=== PATIENT | male | born 1955 | race Caucasian/White ===

== ENCOUNTER 2017-01-21 11:10 | Emergency (ER) | payer BC, OTHER ==
[~2017-01-21] VITALS: Ht 188 cm; Wt 136.1 kg
[~2017-01-21 11:10] MED LIST: ATOR20TA66 PO; BUPR100T8 PO; CHLO15MO3 MM; CIPR500T78 PO; CYCL10TA9 PO; ERGO400C PO; HYDR-3714 PO; LISI1TAB6 PO; METF-380 PO; MULT-974 PO; OMEP20CA12 PO; OXB5T PO; OXYC-12 PO; SODI100P15 DT; TMSL.4C PO
--- NOTE | 2017-01-21 12:32 | ED Abdominal Pain ---
General Chief Complaint: Abdominal/GI Problems Stated Complaint: ABD PAIN POSS HERNIA Nursing Triage Note: PT C/O UMBILICAL PAIN. HE STATES HE HAS HAD AN UMBILICAL HERNIA REPAIR SEVERAL YEARS AGO, BUT FEELS LIKE IT HAS FAILED AND HIS HERNIA IS BACK. Sepsis Screen: No Definite Risk Source of Information: Patient, Family Exam Limitations: No Limitations History of Present Illness Time Seen By Provider: 12:27 Initial Comments This 61-year-old white male presents with a complaint of progressive abdominal pain with associated obstipation. The patient had an umbilical hernia repair years ago and he is now again feeling a protrusion from his umbilical area concerning him that his umbilical hernia has returned and that he may be having obstructive symptoms. The patient has had associated early satiety. Although he is hungry he has not had significant intake. The patient denies fever or chills, he has had no bloody or tarry stools, he denies vomiting although he has been slightly nauseated, he's had no associated headache or stiff neck, chest pain, productive cough, or shortness of breath. The patient has arthritis of his knees. Patient has had a history of pancreatitis. He has had a cholecystectomy. There is a family history of cancer. Allergies and Home Medications Allergies Coded Allergies: Dmpncxz-Lod-Icn Reductase Inhibitor (Unverified Allergy, Unknown, 04/02/14) propoxyphene (Unverified Allergy, Unknown, 04/02/14) Home Medications Atorvastatin Calcium 20 Mg Tablet, 10 MG PO HS, (Reported) TAKES 1/2 (20MG) TABLET Bupropion Hcl 100 Mg Tablet.sa, 100 MG PO BID, (Reported) Chlorhexidine Gluconate 480 Ml Mouthwash, 1 TSP MM DAILY, (Reported) Cholecalciferol 400 Unit Capsule, 800 UNIT PO DAILY, (Reported) TAKES 2 (400IU) CAPSULES Cyclobenzaprine Hcl 10 Mg Tablet, 10 MG PO HS PRN for PAIN, (Reported) Hctz/Lisinopril 1 Each Tablet, 1 TAB PO DAILY, (Reported) Metformin Hcl 1,000 Mg Tablet, 1,000 MG PO HS, (Reported) Multivitamin 1 Each Tablet, 1 TAB PO DAILY, (Reported) Omeprazole 20 Mg Capsule.dr, 20 MG PO BID, (Reported) Oxybutynin Chloride 5 Mg Tablet, 5 MG PO TID PRN for DISCOMFORT, (Reported) Oxycodone Hcl/Acetaminophen 1 Each Tablet, 1 EACH PO Q4-6H PRN PRN for PAIN, # 120 Ref 0 Prescribed by: PABLO MARVIN on 04/08/14 1536 Sodium Fluoride 106 Ml Paste..ml., DT DAILY, (Reported) Tamsulosin Hcl 0.4 Mg Cap.er.24h, 0.4 MG PO AFTER EVENING MEAL, (Reported) Review of Systems Constitutional: No chills, No fever EENTM: No Blurred Vision Respiratory: Denies Cough Cardiovascular: Denies Chest Pain Gastrointestinal: Abdomen Distended, Abdominal Pain (dull diffuse abdominal pain.), Constipated, Diarrhea, Nausea, Poor Appetite, Poor Fluid Intake, Denies Rectal Bleeding, Denies Vomiting Genitourinary: Denies Burning, Denies Frequency Musculoskeletal: No back pain, joint pain Skin: No change in color, No rash Psychiatric/Neurological: No Symptoms Reported Endocrine: No Symptoms Reported Hematologic/Lymphatic: No Symptoms Reported Past Zkkqfei-Birbhv-Hnkmwh Hx Patient Social History Alcohol Use: Occasionally Uses Recreational Drug Use: No Smoking Status: Current Everyday Smoker Type Used: Cigarettes 2nd Hand Smoke Exposure: No Recent Foreign Travel: No Contact w/Someone Who Travel: No Recent Infectious Disease Expo: No Recent Hopitalizations: No Physical Abuse: No Sexual Abuse: No Immunizations Up To Date Tetanus Booster (TDap): Unknown Date of Pneumonia Vaccine: May 29, 2012 Seasonal Allergies Seasonal Allergies: No Surgeries History of Surgeries: Yes (ESWL, Knee arthroscopies x 3, add'l open knee surgery left side) Surgeries: Adenoidectomy, Orthopedic, Tonsillectomy Respiratory History of Respiratory Disorde: Yes (BIPAP @ home) Respiratory Disorders: Sleep Apnea Cardiovascular History of Cardiac Disorders: Yes Cardiac Disorders: High Cholesterol, Hypertension Neurological History of Neurological Disord: No Neurological Disorders: Neuropathy Reproductive System Hx Reproductive Disorders: No Genitourinary Genitourinary Disorders: Kidney Stones Gastrointestinal History of Gastrointestinal Di: Yes ([facility]) Gastrointestinal Disorders: Gastroesophageal Reflux, Pancreatitis Musculoskeletal History of Musculoskeletal Dis: Yes (Chronic back, hip, and knee pain) Musculoskeletal Disorders: Chronic Back Pain Endocrine History of Endocrine Disorders: Yes Endocrine Disorders: Diabetes, Non-Insulin dep HEENT Loss of Vision: Denies Hearing Impairment: Denies Cancer History of Cancer: No Psychosocial History of Psychiatric Problem: Yes Behavioral Health Disorders: PTSD Suicide Risk Score: 0 Integumentary History of Skin or Integumenta: No Blood Transfusions History of Blood Disorders: No Adverse Reaction to a Blood Tr: No Reviewed Nursing Assessment Reviewed/Agree w Nursing PMH: Yes Family Medical History Family Medial History: FH: breast cancer 19 MOTHER Physical Exam Vital Signs VS - Last 72 Hours, by Label 01/21/17 12:10 Temp 98.9 Pulse 65 Resp 18 B/P (MAP) 134/82 Pulse Ox 95 O2 Delivery Room Air Capillary Refill : Less Than 3 Seconds General Appearance: WD/WN, mild distress HEENT: normal ENT inspection, No scleral icterus (R), No scleral icterus (L) Neck: normal inspection Respiratory: lungs clear Cardiovascular: regular rate, rhythm, no murmur Gastrointestinal: abnormal bowel sounds (hypoactive bowel sounds), tenderness ( mild diffuse tenderness.), other (there is a small umbilical hernia that is appreciable measuring approximately 2 cm in diameter) Extremities: normal range of motion, non-tender, normal inspection Neurologic/Psychiatric: no motor/sensory deficits, alert, normal mood/affect, oriented x 3 Skin: normal color, warm/dry, No diaphoresis Progress/Results/Core Measures Results/Orders Lab Results Laboratory Tests Test 01/21/17 12:35 Range/Units White Blood Count 8.4 4.3-11.0 10^3/uL Red Blood Count 5.09 4.35-5.85 10^6/uL Hemoglobin 15.2 13.3-17.7 G/DL Hematocrit 44 40-54 % Mean Corpuscular Volume 86 80-99 FL Mean Corpuscular Hemoglobin 30 25-34 PG Mean Corpuscular Hemoglobin Concent 35 32-36 G/DL Red Cell Distribution Width 13.7 10.0-14.5 % Platelet Count 253 130-400 10^3/uL Mean Platelet Volume 9.6 7.4-10.4 FL Neutrophils (%) (Auto) 74 42-75 % Lymphocytes (%) (Auto) 16 12-44 % Monocytes (%) (Auto) 6 0-12 % Eosinophils (%) (Auto) 3 0-10 % Basophils (%) (Auto) 1 0-10 % Neutrophils # (Auto) 6.2 1.8-7.8 X 10^3 Lymphocytes # (Auto) 1.4 1.0-4.0 X 10^3 Monocytes # (Auto) 0.5 0.0-1.0 X 10^3 Eosinophils # (Auto) 0.2 0.0-0.3 10^3/uL Basophils # (Auto) 0.1 0.0-0.1 10^3/uL Sodium Level 140 135-145 MMOL/L Potassium Level 4.0 3.6-5.0 MMOL/L Chloride Level 105 98-107 MMOL/L Carbon Dioxide Level 24 21-32 MMOL/L Anion Gap 11 5-14 MMOL/L Blood Urea Nitrogen 15 7-18 MG/DL Creatinine 1.16 0.60-1.30 MG/DL Estimat Glomerular Filtration Rate > 60 BUN/Creatinine Ratio 13 Glucose Level 150 H 70-105 MG/DL Calcium Level 9.8 8.5-10.1 MG/DL Total Bilirubin 1.0 0.1-1.0 MG/DL Aspartate Amino Transf (AST/SGOT) 30 5-34 U/L Alanine Aminotransferase (ALT/SGPT) 36 0-55 U/L Alkaline Phosphatase 100 40-136 U/L Total Protein 7.0 6.4-8.2 GM/DL Albumin 4.0 3.2-4.5 GM/DL Lipase 63 8-78 U/L My Orders Orders - EBONI MCKOY MD Cbc With Automated Diff (01/21/17 12:26) Comprehensive Metabolic Panel (01/21/17 12:26) Lipase (01/21/17 12:26) Urinalysis (01/21/17 12:26) Ct Abdomen/Pelvis W (01/21/17 12:26) Ns Iv 1000 Ml (Sodium Chloride 0.9%) (01/21/17 12:30) Saline Lock/Iv-Start (01/21/17 12:31) Iohexol Injection (Omnipaque 350 Mg/Ml 1 (01/21/17 12:45) Ns (Ivpb) (Sodium Chloride 0.9% Ivpb Bag (01/21/17 12:45) Medications Given in ED Current Medications Medications Dose Ordered Sig/Brii Route Start Time Stop Time Status Last Admin Dose Admin Iohexol 100 ml ONCE ONCE IV 01/21/17 12:45 01/21/17 12:46 DC 01/21/17 13:22 100 ML Sodium Chloride 100 ml ONCE ONCE IV 01/21/17 12:45 01/21/17 12:46 DC 01/21/17 13:22 80 ML Vital Signs/I&O Vital Sign - Last 12Hours 01/21/17 12:10 Temp 98.9 Pulse 65 Resp 18 B/P (MAP) 134/82 Pulse Ox 95 O2 Delivery Room Air Blood Pressure Mean: 99 Progress Note : Time: 13:55 Progress Note The patient's CT of the abdomen and pelvis failed to demonstrate evidence of obstruction. The remainder of the patient's laboratory evaluation was similarly unremarkable. Departure Impression Impression: Primary Impression: Diarrhea Qualified Codes: R19.7 - Diarrhea, unspecified Disposition: HOME, SELF-CARE Condition: Unchanged Departure-Patient Inst. Decision time for Depature: 14:00 Referrals: ELI ARAIZA (PCP) Primary Care Physician Patient Instructions: Diarrhea in Adolescents and Adults Add. Discharge Instructions: Follow-up with your insurance healthcare consultant on Monday. Rest at home this . Return if any problems or questions. All discharge instructions reviewed with patient and/or family. Voiced understanding. EBONI MCKOY MD Jan 21, 2017 12:32
[2017-01-21] MEDS: NS IV 1000 ML 1,000 ML IV SCH (12:37)
[2017-01-21 12:48] LABS: BASOPHILS # (AUTO) 0.1 10^3/uL (0.0-0.1); BASOPHILS % (AUTO) 1 % (0-10); EOSINOPHILS # (AUTO) 0.2 10^3/uL (0.0-0.3); EOSINOPHILS % (AUTO) 3 % (0-10); LYMPHOCYTES # (AUTO) 1.4 X 10^3 (1.0-4.0); LYMPHOCYTES % (AUTO) 16 % (12-44); MEAN CORPUSCULAR HEMOGLOBIN 30 PG (25-34); MEAN CORPUSCULAR HGB CONC 35 G/DL (32-36); MEAN CORPUSCULAR VOLUME 86 FL (80-99); MEAN PLATELET VOLUME 9.6 FL (7.4-10.4); MONOCYTES # (AUTO) 0.5 X 10^3 (0.0-1.0); MONOCYTES % (AUTO) 6 % (0-12); NEUTROPHILS # (AUTO) 6.2 X 10^3 (1.8-7.8); NEUTROPHILS % (AUTO) 74 % (42-75); PLATELET COUNT 253 10^3/uL (130-400); RED BLOOD COUNT 5.09 10^6/uL (4.35-5.85); RED CELL DISTRIBUTION WIDTH 13.7 % (10.0-14.5); WHITE BLOOD COUNT 8.4 10^3/uL (4.3-11.0)
[2017-01-21 13:07] LABS: ALANINE AMINOTRANSFERASE 36 U/L (0-55); ANION GAP 11 MMOL/L (5-14); ASPARTATE AMINO TRANSFERASE 30 U/L (5-34); BLOOD UREA NITROGEN 15 MG/DL (7-18); BUN/CREATININE RATIO 13; CALCIUM 9.8 MG/DL (8.5-10.1); CARBON DIOXIDE 24 MMOL/L (21-32); CHLORIDE 105 MMOL/L (98-107); CREATININE SERUM 1.16 MG/DL (0.60-1.30); GFR ESTIMATED > 60; GLUCOSE 150 MG/DL (70-105); LIPASE 63 U/L (8-78); SODIUM 140 MMOL/L (135-145)
[2017-01-21] MEDS: NS 100 ML (IVPB) BAG IV ONE (13:22)
[2017-01-21] MEDS: IOHEXOL 350 MG/ML 100 ML (OMNIPAQUE 350) VIAL IV ONE (13:22)
--- NOTE | 2017-01-21 13:33 | Diagnostic Imaging Report ---
PROCEDURE: CT abdomen and pelvis with contrast. TECHNIQUE: Multiple contiguous axial images were obtained through the abdomen and pelvis after administration of intravenous contrast. INDICATION: Bowel problems for several weeks. Diarrhea. FINDINGS: There are fatty changes of liver. The bile ducts are not dilated. The spleen, pancreas and adrenals are normal. There is a 4 x 6 mm nonobstructing calculus in the left kidney. The right kidney is normal. The ureters and bladder are normal. There is diverticulosis of the colon. No acute bowel abnormality is seen. There is no free intraperitoneal air or fluid. IMPRESSION: There is a nonobstructing calculus in left kidney. No acute abnormality is seen. The changes of pancreatitis seen on the prior study from 04/02/14 have resolved. Dictated by: Dictated on workstation # [id number]
[2017-01-21 14:05] VITALS: BP 134/82
== END 2017-01-21 14:05 | disposition home or self-care (01) ==
LOC: EDUNIT# 11:10 → ER 11:12
DX: R19.7 Diarrhea, unspecified (principal); E78.00 Pure hypercholesterolemia, unspecified; I10 Essential (primary) hypertension; E11.40 Type 2 diabetes mellitus with diabetic neuropathy, unspecified; F43.10 Post-traumatic stress disorder, unspecified; K21.9 Gastro-esophageal reflux disease without esophagitis; G47.30 Sleep apnea, unspecified; F17.210 Nicotine dependence, cigarettes, uncomplicated; Z87.442 Personal history of urinary calculi; Z80.3 Family history of malignant neoplasm of breast; Z90.89 Acquired absence of other organs; Z87.19 Personal history of other diseases of the digestive system; Z98.890 Other specified postprocedural states; Z79.84 Long term (current) use of oral hypoglycemic drugs
CPT/HCPCS: 36415; 74177; 80053; 83690; 85025

== ENCOUNTER 2020-06-28 02:53 | Day surgery (SDC) | payer OTHER, MEDICARE ==
[~2020-06-28] VITALS: Ht 188 cm; Wt 131.9 kg
[~2020-06-28 02:53] MED LIST changes: +EPTIFIBATIDE BOLUS 10 ML IV ONE; +EPTIFIBATIDE BOLUS 20 ML IV ONE; +HEParin 1000 UNIT/ML (10ML VIAL) FOR BOLUS ONE; +MIDAZOLAM 5 MG/5 ML (VERSED) VIAL ONE; +NS (IVPB) 250 ML ONE; +fentaNYL INJECTION 100 MCG/2 ML AMP ONE; +niCARdipine 25 MG/10 ML (CARDENE) AMP IV ONE
[2020-06-28] MEDS ORDERED: NS IV 1000 ML 1,000 ML IV ONE (02:54)
--- NOTE | 2020-06-28 02:55 | Cardiac Procedure Note-CS/ASA ---
Pre-Procedure Note Pre-Op Procedure Note H&P Reviewed The H&P was reviewed, patient examined and no changes noted. Date H&P Reviewed: Jun 28, 2020 Time H&P Reviewed: 21:00 Conscious Sedation Pre-Proced Time 21:00 ASA Score 3 For ASA 3 and 4: Consider anesthesia and medical clearance. Also, for patients with a history of failed moderate sedation consider anesthesia. Airway Lungs Heart ASA score ASA 1: a normal healthy patient ASA 2: a patient with a mild systemic disease (mid diabetes, controlled hypertension, obesity x ASA 3: a patient with a severe systemic disease that limits activity (angina, COPD, prior Myocardial infarction) ASA 4: a patient with an incapacitating disease that is a constant threat to life (CHF, renal failure) ASA 5: a moribund patient not expected to survive 24 hrs. (ruptured aneurysm) ASA 6: a declared brain- patient whose organs are being harvested. For emergent operations, add the letter E after the classification Mallampati Classification Grade 3 Sedation Plan Analgesia, Amnesia, Plan communicated to team members, Discussed options with patient/fam, Discussed risks with patient/fam The patient is an appropriate candidate to undergo the planned procedure, sedation, and anesthesia. The patient immediately re-assessed prior to indication. LUBA VASQUES MD Jun 28, 2020 02:55
[2020-06-28] MEDS ORDERED: PATIENT MAY USE OWN MEDS, ALL PO SCH (03:00)
--- NOTE | 2020-06-28 03:00 | Cardiology History & Physical ---
HPI-Cardiology Cardiology Consultation Date of Consultation 06/28/20 Date of Admission Time Seen by Provider: 02:10 Indication: acute myocardial infarction HPI 65 years old gentleman with morbid obesity, started to have severe chest pain this afternoon went to [place] emergency room and noted to have EKG changes suggestive of acute ST patient myocardial infarction. I was contacted and patient was transferred to [place] on arrival he was still having some active chest pain. No shortness of breath. No palpitation. Was on nitroglycerin drip and received heparin and aspirin and Plavix in [place] emergency room. PMH-Cardiology Immunizations Up To Date Tetanus Booster (DTap): Unknown Date of Pneumonia Vaccine: May 29, 2012 Seasonal Allergies Seasonal Allergies: No Surgeries Yes (ESWL, Knee arthroscopies x 3, add'l open knee surgery left side) Respiratory Yes (BIPAP @ home) Cardiovascular Yes Hypertension Neurological No Neuropathy Reproductive System Hx Reproductive Disorders: No Genitourinary Kidney Stones Gastrointestinal Yes ([facility]) Gastroesophageal Reflux, Pancreatitis Musculoskeletal Yes (Chronic back, hip, and knee pain) Chronic Back Pain Endocrine Yes Diabetes, Non-Insulin dep HEENT Loss of Vision: Denies Hearing Impairment: Denies Cancer No Psychosocial Yes PTSD Integumentary No Blood Transfusions No Adverse Rxn to Transfusion: No Other PMHx Hypertension Hyperlipidemia Social History Patient Social History Marrital Status: Employed/Student: employed Family Hx Other Noncontributory Family History: FH: breast cancer 19 MOTHER ROS-Cardiology Review of Systems General: No Chills, No Night Sweats, No Fatigue, No Malaise, No Appetite HEENT: No Head Aches, No Visual Changes, No Eye Pain, No Ear Pain, No Dysphasia, No Sinus Congestion, No Post Nasal Drip, No Sore Throat Pulmonary: Dyspnea; No Cough, No Pleuritic Chest Pain Cardiovascular: Chest Pain; No: Palpitations, Orthopnea, Paroxysmal Noc. Dyspnea, Edema, Lt Headedness Gastrointestinal: No: Nausea, Vomiting, Abdominal Pain, Diarrhea, Constipation, Melena, Hematochezia Genitourinary: No Dysuria, No Frequency, No Incontinence, No Hematuria, No Retention Musculoskeletal: No: neck pain, shoulder pain, arm pain, back pain, hand pain, leg pain, foot pain Neurological: No: Weakness, Numbness, Incoordination, Change in speech, Confusion, Seizures Home Medications & Allergies Allergies: Coded Allergies: Uaoqfct-Zwm-Pka Reductase Inhibitor (Unverified Allergy, Unknown, 04/02/14) propoxyphene (Unverified Allergy, Unknown, 04/02/14) Exam-Cardiology Exam General Appearance: Alert, Oriented X3, Cooperative, No Acute Distress HEENT: Atraumatic, PERRLA Respiratory: Clear to Auscultation, Normal Air Movement Cardiovascular: Regular Rate, Normal S1, Normal S2, No Murmurs Abdominal: Normal Bowel Sounds, Soft, No Tenderness, No Hepatosplenomegaly, No Masses Extremities: No Clubbing, No Cyanosis, No Edema, Normal Pulses, No Tenderness/Swelling Skin: No Rashes, No Breakdown, No Significant Lesion Neuro: Normal Gait, Normal Speech, Strength at 5/5 X4 Ext, Normal Tone, Sensation Intact Psych/Mental Status: Mental Status NL, Mood NL Results Procedures Procedures Labs reviewed from [facility] A/P-Cardiology Admission Diagnosis Acute ST elevation myocardial infarction Coronary artery disease Congestive heart failure, acute left ventricular systolic dysfunction, ischemic cardiomyopathy Hypertension Admission Status: Inpatient Order (span 2 midnights) Reason for Inpatient Admission: Acute ST elevation myocardial infarction Assessment/Plan Acute ST elevation myocardial infarction in the inferoposterior wall, brought for emergency cardiac catheterization with door to balloon time of 15 minutes. Resolved, feeling better. 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 Started on aspirin and Plavix. Congestive heart failure, elevated left ventricular end-diastolic pressure, stunned myocardium with mild hypokinesia at the inferior wall, ejection fraction 45-50 percent started on beta blockers and will add SANDRO inhibitor if tolerating it Hypertension, was hypertensive on arrival to the emergency room. Started on Toprol. Currently blood pressure is better. Continue to monitor Possible hyperlipidemia started on Lipitor 80 mg daily empirically, I will evaluate lipid profile Morbid obesity. LUBA VASQUES MD Jun 28, 2020 02:59
--- NOTE | 2020-06-28 03:07 | Cardiac Cath Report ---
Cardiac Cath Report Physician (s)/Quarantine Officer (s) Physician LUBA VASQUES MD Pre-Procedure Diagnosis Pre-Procedure Diagnosis: STEMI Post-Procedure Note Procedure Start Date: Jun 28, 2020 Name of Procedure: Emergency left heart catheterization Emergency stenting of the right coronary artery Left ventriculogram Abdominal aortogram Findings/Procedure Note PROCEDURE NOTE: 65 years old gentleman admitted with acute ST elevation myocardial infarction, brought to the cardiac catheterization laboratory for emergency cardiac catheterization. After explaining the procedure to the patient, all pros and cons were explained, all questions were answered. The patient signed the consent and then he was placed on the cardiac catheterization laboratory. Groin was prepped SL fashion local anesthesia was used. Sheath placed in the right femoral artery. Claudia right and left catheter were used to access the coronary system. Pigtail was used to access the left ventricular cavity. Left ventriculogram was done Abdominal aortogram was done due to the difficulty of advancing the wire in the iliac artery and I evaluated the bifurcation Percutaneous intervention report Patient had total occlusion of the right coronary artery, receiving 4000 units of heparin in [place] emergency room, additional 3000 units heparin were given in the catheter lab, if our guide was advanced to the right coronary artery, patient has total occlusion, BMW wire advanced then predilated location with 2.0 then 2.5 balloons then deployment of Denita 2.5 x 28 mm in the mid right coronary artery, proximally overlapping with the first stent another Denita 2.75 x 28 mm, the proximal portion of the stent was expanded to 3.5 mm, the overlap area of both stents was 3.0 mm and distally 2.7 mm with excellent result, had initially slow flow responded to Cardene intracoronary. At the end of the procedure the sheath was removed. Closure device was deployed FINDINGS: Hemodynamics LV 113/21, end-diastolic pressure of 21 Aorta 118/64 mean of 84 ANATOMY: Left Main is free of obstructive disease Left Anterior Descending had moderate ectasia at the proximal and midportion with an area of 70 percent stenosis at the midportion which will be addressed at a later point Left Circumflex has moderate ectasia, dominant artery Right Coronory Artery is totally occluded, emergency establishment of flow with door to balloon time 16 minutes, predilated location with multiple balloons then deployment of 2 overlapping Denita stent 2.5 x 28 and 2.75 x 28 expanded to 3.5 mm proximally and 2.7 mm distally, slow flow initially responded to Cardene intracoronary with HUNTER-3 flow LV Gram was done showing prominent left ventricle with hypokinesia at the inferior wall, estimated ejection fraction 45-50 percent Aorta evaluation done with abdominal aortogram to evaluate the bifurcation due to difficulty advancing the wire through the right iliac artery showed small i nfrarenal aneurysm, ectasia in the iliac artery no dissection. Renal arteries were not visualized CONCLUSION: 1. Acute inferior/posterior wall myocardial infarction with total occlusion of the right coronary artery with door to balloon time 16 minutes 2. Total occlusion of the right coronary artery with deployment of 2 overlapping Denita stent 2.5 x 28 mm and 2.75 x 28 mm expanded proximally to 3.5 mm, at the overlap area 3.0 mm and distally 2.7 mm with excellent results 3. Moderate ectasia in the proximal and mid LAD with one area of 70 percent stenosis, I will observe at this point and will consider stress testing in the future 4. Mild ectasia in the circumflex artery, nonobstructive disease 5. Elevated left ventricular end-diastolic pressure, hypokinesia at the inferior wall, ejection fraction 45-50 percent 6. Small infrarenal abdominal aortic aneurysm with mild ectasia in the iliac artery no dissection, nonobstructive disease DISCUSSION AND RECOMMENDATION: Continue to maximize medical therapy at this point, planning for stress test or repeat cardiac catheterization and FFR to the LAD Anesthesia Type: Conscious Sedation Estimated blood loss (mL): 35 ml Contrast Amount: 140 ml Total Radiation Dose: 1912 mGy Post-Procedure Diagnosis Post-operative diagnosis: Acute ST elevation myocardial infarction Coronary artery disease Congestive heart failure, acute left ventricular systolic dysfunction ischemic cardiomyopathy Hypertension LUBA VASQUES MD Jun 28, 2020 03:07
--- NOTE | 2020-06-28 03:15 | NUR ---
IZABELA CARLOS admitted to room CU3-1, with an admitting diagnosis of STEMI post cath, on 06/28 from slab tripper, accompanied by staff.IZABELA CARLOS introduced to surroundings, call light, bed controls, phone, TV, temperature control, lights, meal times, smoking policy, visitor policy, side rail policy, bathrooms and showers. Patient Rights given to patient in the handbook. IZABELA CARLOS verbalizes understanding that [facility] is not responsible for the loss or damage to any personal effects or valuables that are kept in the patients possession during their hospitalization. The following Patient Care Plans were discussed with the patient: Discharge Planning, pain,diet, and exercise. IZABELA CARLOS verbalizes understanding of Interdisciplinary Patient Education. Patient and/or family were informed about the Rapid Response Team and its purpose.
[2020-06-28] MEDS: NS IV 1000 ML 1,000 ML IV SCH ×3 (03:25→23:57)
[2020-06-28] MEDS ORDERED: PRAS1TAB2 PO (04:48)
[2020-06-28] MEDS ORDERED: CHOL400T29 PO (04:48)
[2020-06-28] MEDS ORDERED: POTA10TA17 PO (04:48)
[2020-06-28] MEDS ORDERED: GLIP5TAB13 PO (04:48)
[2020-06-28] MEDS ORDERED: LISI40TA PO (04:48)
[2020-06-28] MEDS ORDERED: OMG1KC PO (04:48)
[2020-06-28] MEDS ORDERED: ALOG25TA2 PO (04:48)
[2020-06-28 05:27] LABS: HEMOGLOBIN 14.8 g/dL (13.3-17.7); MEAN PLATELET VOLUME 9.8 fL (9.0-12.2); WHITE BLOOD COUNT 11.7 10^3/uL (4.3-11.0)
[2020-06-28 05:39] LABS: ALBUMIN 3.8 GM/DL (3.2-4.5); CHLORIDE 105 MMOL/L (98-107); POTASSIUM 4.7 MMOL/L (3.6-5.0); SODIUM 137 MMOL/L (135-145)
[2020-06-28 05:41] LABS: TRIGLYCERIDES 117 MG/DL (<150); VLDL CHOLESTEROL 23 MG/DL (5-40)
[2020-06-28 05:42] LABS: GLUCOSE 156 MG/DL (70-105); TOTAL PROTEIN 6.7 GM/DL (6.4-8.2)
[2020-06-28 05:43] LABS: BILIRUBIN,TOTAL 0.8 MG/DL (0.1-1.0); CARBON DIOXIDE 22 MMOL/L (21-32)
[2020-06-28 05:45] LABS: ALKALINE PHOSPHATASE 82 U/L (40-136); CREATININE SERUM 1.05 MG/DL (0.60-1.30); GFR ESTIMATED > 60
[2020-06-28] MEDS ORDERED: oxyCODONE/APAP 5/325MG (PERCOCET 5) TABLET PO ONE (05:45)
[2020-06-28 05:46] LABS: CHOLESTEROL 166 MG/DL (< 200)
[2020-06-28 05:47] LABS: BUN/CREATININE RATIO 16; HDL CHOLESTEROL 30 MG/DL (40-60)
[2020-06-28 05:48] LABS: ALANINE AMINOTRANSFERASE 31 U/L (0-55)
[2020-06-28] MEDS: inSUlin ASPART (NovoLOG) 1 UNIT/0.01 ML (CHARGE PER UNIT) SC SCH ×4 (05:50→20:53)
[2020-06-28] MEDS: KCL 20 MEQ TAB (K-DUR) PO SCH (05:51)
[2020-06-28] MEDS: POTASSIUM CL 10MEQ/50ML IVPB 50 ML IV SCH (05:51)
[2020-06-28] MEDS: MAGNESIUM 1 GM/100 ML IVPB 100 ML IV SCH (05:51)
[2020-06-28] MEDS: PANTOPRAZOLE 40 MG (PROTONIX) TAB PO SCH (09:12)
[2020-06-28] MEDS: ASPIRIN E.C. 81 MG (ECOTRIN) TAB PO SCH (09:12)
[2020-06-28] MEDS: CLOPIDOGREL 75 MG (PLAVIX) TABLET PO SCH (09:12)
[2020-06-28] MEDS ORDERED: HEParin (CATH LAB) 1,000 ML IV ONE (14:52)
[2020-06-28] MEDS ORDERED: LIDOCAINE 1% INJ 20 ML 20 ML VIAL INJ ONE (14:52)
[2020-06-28] MEDS ORDERED: NITRO DRIP 25000 MCG/D5W 250 ML IV ONE (14:55)
[2020-06-28] MEDS: glipiZIDE 5 MG (GLUCOTROL) TAB PO SCH (20:45)
[2020-06-28] MEDS: buPROPion SR 100 MG (WELLBUTRIN SR) TAB PO SCH (20:53)
[2020-06-29 04:03] LABS: BASOPHILS # (AUTO) 0.1 10^3/uL (0.0-0.1); BASOPHILS % (AUTO) 1 % (0-10); EOSINOPHILS # (AUTO) 0.4 10^3/uL (0.0-0.3); EOSINOPHILS % (AUTO) 4 % (0-10); HEMATOCRIT 42 % (40-54); HEMOGLOBIN 14.4 g/dL (13.3-17.7); LYMPHOCYTES # (AUTO) 2.1 10^3/uL (1.0-4.0); LYMPHOCYTES % (AUTO) 23 % (12-44); MEAN CORPUSCULAR HEMOGLOBIN 30 pg (25-34); MEAN CORPUSCULAR HGB CONC 34 g/dL (32-36); MEAN CORPUSCULAR VOLUME 87 fL (80-99); MEAN PLATELET VOLUME 9.6 fL (9.0-12.2); MONOCYTES # (AUTO) 0.7 10^3/uL (0.0-1.0); MONOCYTES % (AUTO) 8 % (0-12); NEUTROPHILS # (AUTO) 5.9 10^3/uL (1.8-7.8); NEUTROPHILS % (AUTO) 64 % (42-75); PLATELET COUNT 243 10^3/uL (130-400); WHITE BLOOD COUNT 9.2 10^3/uL (4.3-11.0)
[2020-06-29 04:09] LABS: ALBUMIN 3.8 GM/DL (3.2-4.5); CHLORIDE 108 MMOL/L (98-107); POTASSIUM 3.7 MMOL/L (3.6-5.0); SODIUM 141 MMOL/L (135-145)
[2020-06-29 04:11] LABS: CALCIUM 8.8 MG/DL (8.5-10.1)
[2020-06-29 04:12] LABS: GLUCOSE 93 MG/DL (70-105); TOTAL PROTEIN 6.6 GM/DL (6.4-8.2)
[2020-06-29 04:13] LABS: BILIRUBIN,TOTAL 0.7 MG/DL (0.1-1.0); CARBON DIOXIDE 23 MMOL/L (21-32)
[2020-06-29 04:15] LABS: ALKALINE PHOSPHATASE 86 U/L (40-136); CREATININE SERUM 1.05 MG/DL (0.60-1.30); GFR ESTIMATED > 60; PHOSPHORUS 2.4 MG/DL (2.3-4.7)
[2020-06-29 04:17] LABS: BUN/CREATININE RATIO 15
[2020-06-29 04:18] LABS: ALANINE AMINOTRANSFERASE 32 U/L (0-55)
[2020-06-29 04:19] LABS: MAGNESIUM 1.9 MG/DL (1.6-2.4)
[2020-06-29] MEDS: inSUlin ASPART (NovoLOG) 1 UNIT/0.01 ML (CHARGE PER UNIT) SC SCH (05:08)
[2020-06-29] MEDS: KCL 20 MEQ TAB (K-DUR) PO SCH (05:08)
[2020-06-29] MEDS: POTASSIUM CL 10MEQ/50ML IVPB 50 ML IV SCH (05:08)
[2020-06-29] MEDS: MAGNESIUM 1 GM/100 ML IVPB 100 ML IV SCH (05:08)
[2020-06-29] MEDS ORDERED: CLOP75TA28 PO (07:44)
[2020-06-29] MEDS ORDERED: PANT40TA52 PO (07:44)
[2020-06-29] MEDS ORDERED: ASPI-1238 PO (07:44)
[2020-06-29] MEDS ORDERED: MTP25TSR PO (07:44)
[2020-06-29] MEDS ORDERED: ATOR80TA76 PO (07:44)
--- NOTE | 2020-06-29 07:46 | Discharge Inst-Post CATH ---
Discharge Inst-CATH/EP Problems Reviewed?: Yes Post Cardiac Cath/EP D/C Inst Follow Up/Plan Appointment with Dr Santo in 2 weeks <b>CARDIAC CATH/EP PROCEDURE DISCHARGE INSTRUCTIONS</b> ACTIVITY * Go Home directly and rest. * Limit activity of the leg (or wrist if it was used) for 7 days including aerobics, swimming, jogging, bicycling, etc. * Restrict stair-climbing for 7 days if possible, if not, climb up with your non-cath leg, then bring together on the same step. * Avoid lifting, pushing, pulling or excessive movement of the affected extremity for 7 days. * Customary sexual activity may be resumed after 2 days-use caution not to use a position that strains or causes pain to the affected extremity. * No driving for 24 hours. * NO SMOKING. * Avoid straining for bowel movements for 7 days. * Gentle walking on level ground is allowed. * Returning to work will depend on the type of procedure and the results. Your doctor will discuss this with you. CALL YOUR DOCTOR FOR ANY OF THE FOLLOWING: *If bleeding from the puncture site occurs- Apply gentle pressure to site with clean cloth and call your doctor or EMS. * If a knot or lump forms under the skin, increases in size, or causes pain. * If bruising appears to be worsening or moving further down your leg instead of disappearing. * Temperature above 101 F. CARE OF YOUR GROIN INCISION; * Bruising or purple discoloration of the skin near the puncture site is common. * You may shower only, no bathtub bathing for 5 days. Be careful to avoid slipping as your leg may feel stiff. * If a closure device was used on your femoral artery, please see the attached guide regarding care of the device and your leg. * Leave dressing on FOR 24 hours. CARE OF YOUR WRIST INCISION; * Bruising or purple discoloration of the skin near the puncture site is common. * You may shower. * DO NOT submerge wrist. * Leave dressing on FOR 24 hours. LUBA SANTO MD Jun 29, 2020 07:46
--- NOTE | 2020-06-29 07:48 | Diagnostic Imaging Report ---
Indication: Myocardial infarct. Time of exam: 2:27 AM Correlation is made with prior chest from one day earlier. The heart size is normal. The pulmonary vascularity is unremarkable. The lungs are clear. No infiltrate, effusion or pneumothorax is detected. Impression: No acute cardiopulmonary process is detected. Dictated by: Dictated on workstation # [id number]
[2020-06-29] MEDS: glipiZIDE 5 MG (GLUCOTROL) TAB PO SCH (08:05)
[2020-06-29] MEDS: CLOPIDOGREL 75 MG (PLAVIX) TABLET PO SCH (08:05)
[2020-06-29] MEDS: buPROPion SR 100 MG (WELLBUTRIN SR) TAB PO SCH (08:05)
[2020-06-29] MEDS: PANTOPRAZOLE 40 MG (PROTONIX) TAB PO SCH (08:05)
[2020-06-29] MEDS: ASPIRIN E.C. 81 MG (ECOTRIN) TAB PO SCH (08:06)
--- NOTE | 2020-06-29 08:56 | NUR ---
Received dietary consult for MST score. Given current PO intake, pt is not at risk for malnutrition at this time. Scooby Haines, MS RD LD
[2020-06-29] MEDS ORDERED: lisINopril 40 MG (PRINIVIL) TABLET PO SCH (09:00)
[2020-06-29] MEDS ORDERED: CHLORHEXIDINE 0.12% SOLN 15 ML (PERIDEX) UDC MM SCH (09:00)
--- NOTE | 2020-06-29 10:51 | Cardiology Discharge Summary ---
Discharge Summary Hospital Course Hospital Course Date of Admission: Admission Diagnosis : Family Physician/Provider: Yumi Spring Date of Discharge: 06/29/20 Discharge Diagnosis: [Acute ST elevation myocardial infarction Coronary artery disease Congestive heart failure, acute left ventricular systolic dysfunction, ischemic cardiomyopathy, resolved Hypertension ] Hospital Course: [ Acute ST elevation myocardial infarction in the inferoposterior wall, brought for emergency cardiac catheterization with door to balloon time of 15 minutes. Resolved, feeling better. 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 Started on aspirin and Plavix. Congestive heart failure, elevated left ventricular end-diastolic pressure, stunned myocardium with mild hypokinesia at the inferior wall, ejection fraction 45-50 percent started on beta blockers and will add SANDRO inhibitor if tolerating it Hypertension, was hypertensive on arrival to the emergency room. Started on Top rol. Currently blood pressure is better. Continue to monitor Possible hyperlipidemia started on Lipitor 80 mg daily empirically, I will evaluate lipid profile Morbid obesity This morning patient is feeling well, echocardiogram showed normal left ventr icular function, planning to discharge home today..] Labs and Pending Lab Test: Laboratory Tests 06/28/20 17:38: Glucometer 102 06/28/20 20:41: Glucometer 147H 06/29/20 03:31: White Blood Count 9.2, Red Blood Count 4.87, Hemoglobin 14.4, Hematocrit 42, Mean Corpuscular Volume 87, Mean Corpuscular Hemoglobin 30, Mean Corpuscular Hemoglobin Concent 34, Red Cell Distribution Width 13.4, Platelet Count 243, Mean Platelet Volume 9.6, Immature Granulocyte % (Auto) 0, Neutrophils (%) (Auto) 64, Lymphocytes (%) (Auto) 23, Monocytes (%) (Auto) 8, Eosinophils (%) (Auto) 4, Basophils (%) (Auto) 1, Neutrophils # (Auto) 5.9, Lymphocytes # (Auto) 2.1, Monocytes # (Auto) 0.7, Eosinophils # (Auto) 0.4H, Basophils # (Auto) 0.1, Immature Granulocyte # (Auto) 0.0, Sodium Level 141, Potassium Level 3.7, Chloride Level 108H, Carbon Dioxide Level 23, Anion Gap 10, Blood Urea Nitrogen 16, Creatinine 1.05, Estimat Glomerular Filtration Rate > 60, BUN/Creatinine Ratio 15, Glucose Level 93, Calcium Level 8.8, Corrected Calcium 9.0, Phosphorus Level 2.4, Magnesium Level 1.9, Total Bilirubin 0.7, Aspartate Amino Transf (AST/SGOT) 49H, Alanine Aminotransferase (ALT/SGPT) 32, Alkaline Phosphatase 86, Total Protein 6.6, Albumin 3.8 Microbiology 06/28/20 MRSA Screen - Final, Complete MRSA not isolated Home Meds Active Pantoprazole Sodium 40 Mg Tablet.dr 40 Mg PO DAILY Aspirin EC (Aspirin) 81 Mg Tablet.dr 81 Mg PO DAILY Metoprolol Succinate 25 Mg Tab.er.24h 25 Mg PO DAILY Atorvastatin Calcium 80 Mg Tablet 80 Mg PO HS Clopidogrel (Clopidogrel Bisulfate) 75 Mg Tablet 75 Mg PO DAILY Reported Alogliptin (Alogliptin Benzoate) 25 Mg Tablet 25 Mg PO DAILY Dhea 50 mg Tablet (Prasterone (Dhea)/Calcium Carb) 1 Each Tablet 1 Each PO DAILY Fish Oil 1,000 mg Capsule ([place] 3 Polyunsat Fatty Acids) 1,000 Mg Cap 1,000 Mg PO DAILY Potassium Citrate ER (Potassium Citrate) 10 Meq Tablet.er 20 Meq PO BID Vitamin D-400 (Cholecalciferol (Vitamin D3)) 10 Mcg Tablet 10 Mcg PO DAILY Glipizide 5 Mg Tablet 2.5 Mg PO BID Lisinopril 40 Mg Tablet 40 Mg PO DAILY Multi Vitamin Daily (Multivitamin) 1 Each Tablet 1 Tab PO DAILY Peridex (Chlorhexidine Gluconate) 480 Ml Mouthwash 1 Tsp MM DAILY Bupropion Sr (Bupropion Hcl) 100 Mg Tablet.sa 100 Mg PO BID Cyclobenzaprine Hcl (Cyclobenzaprine HCl) 10 Mg Tablet 10 Mg PO HS PRN Metformin 1000 Mg (Metformin HCl) 1,000 Mg Tablet 1,000 Mg PO BID Vitamin D (Cholecalciferol) 400 Unit Capsule 800 Unit PO DAILY TAKES 2 (400IU) CAPSULES Assessment/Pt DC Instructions Patient was instructed on holding metformin for 48 hours Educator noncompliance with medication Appointment with Dr. VASQUES's office in 2 weeks Discharge Diet: Low Sodium Diet Activity as Tolerated: Yes Discharge Physical Examination Allergies: Coded Allergies: [id number]-Irt-[id number] Reductase Inhibitor (Unverified Allergy, Unknown, 04/02/14) propoxyphene (Unverified Allergy, Unknown, 04/02/14) General Appearance: No Apparent Distress, WD/WN HEENT: PERRL/EOMI, TMs Normal, Normal ENT Inspection, Pharynx Normal Respiratory: Chest Non Tender, Lungs Clear, Normal Breath Sounds, No Accessory Muscle Use, No Respiratory Distress Cardiovascular: Regular Rate, Rhythm, No Edema, No Gallop, No JVD, No Murmur, Normal Peripheral Pulses Gastrointestinal: Normal Bowel Sounds, No Organomegaly, No Pulsatile Mass, Non Tender, Soft Extremity: Normal Capillary Refill, Normal Inspection, Normal Range of Motion, Non Tender, No Calf Tenderness Skin: Normal Color, Warm/Dry Neurologic/Psychiatric: Alert, Oriented x3, No Motor/Sensory Deficits, Normal Mood/Affect LUBA VASQUES MD Jun 29, 2020 10:51
== END 2020-06-29 10:20 | disposition home or self-care (01) ==
LOC: CATH 02:53 → ICU 03:17 → CSD 18:00 → CATH 06-29 10:20
PROVIDERS: ATTEND Internal Medicine Cardiovascular Disease
DX: I21.3 ST elevation (STEMI) myocardial infarction of unspecified site (principal); I25.10 Atherosclerotic heart disease of native coronary artery without angina pectoris; I11.0 Hypertensive heart disease with heart failure; I50.21 Acute systolic (congestive) heart failure; G89.29 Other chronic pain; M54.5 Low back pain; K21.9 Gastro-esophageal reflux disease without esophagitis; E78.5 Hyperlipidemia, unspecified; E11.9 Type 2 diabetes mellitus without complications; Z79.899 Other long term (current) drug therapy; Z88.8 Allergy status to other drugs, medicaments and biological substances; Z80.3 Family history of malignant neoplasm of breast
CPT/HCPCS: 71045; 80053 ×2; 80061; 82962; 83735; 84100; 84484; 85025; 85027 ×2; 85347; 87081; 93005 ×2; 93306; 93458; C1725 ×3; C1760; C1769; C1874 ×2; C1887; C1894; C9606; 36415

== ENCOUNTER → 2020-07-22 | Outpatient (CLI) | payer OTHER, MEDICARE ==
[~2020-07-22] VITALS: Ht 187 cm; Wt 85.0 kg
[~2020-07-22] MED LIST changes: +ALOG25TA2 PO; +ASPI-1238 PO; +ATOR80TA76 PO; +CATHETER FLUSH 10 ML SYR IV PRN; +CHOL400T29 PO; +CLOP75TA28 PO; -EPTIFIBATIDE BOLUS 10 ML IV ONE; -EPTIFIBATIDE BOLUS 20 ML IV ONE; +GLIP5TAB13 PO; -HEParin 1000 UNIT/ML (10ML VIAL) FOR BOLUS ONE; +LISI40TA9 PO; -MIDAZOLAM 5 MG/5 ML (VERSED) VIAL ONE; +MTP25TSR PO; -NS (IVPB) 250 ML ONE; +OMG1KC PO; +PANT40TA52 PO; +POTA10TA17 PO; +PRAS1TAB2 PO; +REGADENOSON 0.4 MG/5 ML SYR (LEXISCAN) IV ONE; -fentaNYL INJECTION 100 MCG/2 ML AMP ONE; -niCARdipine 25 MG/10 ML (CARDENE) AMP IV ONE
[2020-07-22 12:57] VITALS: BP 130/76
--- NOTE | 2020-07-22 14:46 | Cardiology Stress Test Report ---
Stress Test Report Date of Procedure/Referring: Date of Procedure: Jul 22, 2020 PCP Luba Santo MD Admitting Physician No,Local Physician Indications: Chest pain Baseline Heart Rate: 58 Baseline Blood Pressure: Blood Pressure Systolic: 130 Blood Pressure Diastolic: 76 Baseline Vitals Vital Signs Date Time Temp Pulse Resp B/P (MAP) Pulse Ox O2 Delivery O2 Flow Rate FiO2 07/22/20 12:57 53 18 130/76 (94) 97 Room Air Baseline EKG: Baseline EKG: normal sinus rhythm Summary After explaining the procedure to the patient, he signed a consent and then brought to the stress nuclear laboratory. Patient received 0.4 mg Lexiscan for stress test, ECG, heart rate and blood pressure were monitored continuously. Resting and stress dose of radio tracer were injected, imaging was acquired and reviewed in short axis, horizontal long axis and vertical long axis views. TID: 1.05 SSS: 2 SDS: 2 EF: 58 1. Patient tolerated Lexiscan well 2. Diaphragmatic attenuation with mild decreased uptake at the inferoapical segment with mild reversibility, probably due to diaphragmatic attenuation 3. Normal left ventricular size, EF 58 percent LUBA SANTO MD Jul 22, 2020 14:46
== END ==
LOC: CARD 11:44
PROVIDERS: ATTEND Internal Medicine Cardiovascular Disease
DX: R07.9 Chest pain, unspecified (principal)
CPT/HCPCS: 78452; 93017; A9502

== ENCOUNTER → 2021-01-21 | Outpatient (CLI) | payer OTHER ==
[~2021-01-21] MED LIST changes: -CATHETER FLUSH 10 ML SYR IV PRN; -REGADENOSON 0.4 MG/5 ML SYR (LEXISCAN) IV ONE
--- NOTE | 2021-01-21 18:15 | Diagnostic Imaging Report ---
PROCEDURE: CT urinary tract, rule out kidney stone. TECHNIQUE: Multiple contiguous axial images were obtained through the abdomen and pelvis without the use of intravenous contrast. Auto Exposure Controls were utilized during the CT exam to meet ALARA standards for radiation dose reduction. INDICATION: Right lower quadrant abdominal pain and microhematuria. COMPARISON: 01/21/2017. Unenhanced images of the liver, pancreas, adrenal glands and spleen are unremarkable. There are punctate nonobstructing stones within the central left kidney. There is no evidence of hydronephrosis or hydroureter. There are numerous calcified phleboliths seen in the pelvis. There is no evidence of ureteric stone. The appendix has a normal appearance. No bladder calculus is identified. There is no evidence of free fluid. No organized fluid collection or focal inflammation is seen. There is mild aortoiliac atherosclerotic calcification. IMPRESSION: Nonobstructing left nephrolithiasis without CT evidence of obstructive uropathy or other acute abnormality. Dictated by: Dictated on workstation # [id number]
== END ==
LOC: WSo 17:39
PROVIDERS: ATTEND Nurse Practitioner Family
DX: N20.0 Calculus of kidney (principal)
CPT/HCPCS: 74176

== ENCOUNTER → 2022-05-06 | Outpatient (CLI) | payer OTHER | LOC: CARD 11:00 | PROVIDERS: ATTEND Physician Assistant | DX: I10 Essential (primary) hypertension (principal) | CPT/HCPCS: 93306 ==

== ENCOUNTER → 2022-05-11 | Outpatient (CLI) | payer OTHER ==
[~2022-05-11] VITALS: Ht 187 cm; Wt 128.0 kg
[~2022-05-11] MED LIST changes: +CATHETER FLUSH 10 ML SYR IVP PRN; +REGADENOSON 0.4 MG/5 ML SYR (LEXISCAN) IV ONE
[2022-05-11 09:28] VITALS: BP 134/73
--- NOTE | 2022-05-11 15:56 | Cardiology Stress Test Report ---
Stress Test Report Date of Procedure/Referring: Date of Procedure: May 11, 2022 PCP No,Local Physician Admitting Physician Admitting Physician: Attending Physician: Joan Hamm Baseline Heart Rate: 67 Baseline Blood Pressure: Blood Pressure Systolic: 134 Blood Pressure Diastolic: 73 Baseline Vitals Vital Signs Date Time Temp Pulse Resp B/P (MAP) Pulse Ox O2 Delivery O2 Flow Rate FiO2 05/11/22 09:28 66 16 134/73 (93) Room Air Baseline EKG: Baseline EKG: NSR Summary After explaining the procedure to the patient, he signed a consent and then brought to the stress nuclear laboratory. Patient received 0.4 mg Lexiscan for stress test, ECG, heart rate and blood pressure were monitored continuously. Resting and stress dose of radio tracer were injected, imaging was acquired and reviewed in short axis, horizontal long axis and vertical long axis views. TID: 1.1 SSS: 4 SDS: 4 EF: 61 1. Patient tolerated Lexiscan well 2. Diaphragmatic attenuation with typical male pattern. No significant ischemia or infarction on SPECT images 3. Normal left ventricular size, ejection fraction 61% CC LUBA Becerra MD May 11, 2022 15:56
== END ==
LOC: CARD 07:44
PROVIDERS: ATTEND Physician Assistant
DX: I50.9 Heart failure, unspecified (principal)
CPT/HCPCS: 78452; 93017